=== PATIENT | male | born 1970 | race Caucasian/White ===

== ENCOUNTER 2017-02-03 21:02 | Emergency (ER) | payer OTHER ==
[~2017-02-03] VITALS: Ht 177.8 cm; Wt 88.5 kg
[2017-02-03 21:05] VITALS: BP 137/86; PULSE 96; RESP 18; TEMP 98.4; O2SAT 99
--- NOTE | 2017-02-03 21:05 | NUR ---
Patient to [facility] for evaluation. Side rails up. Report given to ANNALEE.
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
--- NOTE | 2017-02-03 21:15 | NUR ---
ER at bedside examining patient.
--- NOTE | 2017-02-03 21:35 | NUR ---
Written and verbal consent obtained from patient for blood alcohol, name and verified by patient. Disinfected patient's skin with Iodine that did not contain alcohol or other volatile organic compound. Collected the blood from the subject named by venipuncture, in the presence of Officer Kota. Used a sterile, dry hypodermic needle and dry vacuum blood collection. The dry vacuum blood collection was supplied by the officer named above. Withdrew a specimen of blood from right arm of the subject named above. Inverted the blood tube several times to ensure that the preservative and anticoagulant were thoroughly mixed in the blood specimen. I initialed the blood tube label for identification. The labeled blood tube was handed directly to the Officer named above. The blood tube stopper remained in place while I had possession of the blood tube. The Officer placed tube into envelope and sealed it in my presence. Envelope initialed by myself and Officer named above. Patient tolerated well, bandage applied, and bleeding controlled.
[2017-02-03 21:40] VITALS: BP 137/86; PULSE 96; RESP 18; TEMP 98.4; O2SAT 99
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
== END 2017-02-03 21:40 ==
LOC: SED 21:02
DX: Z02.83 Encounter for blood-alcohol and blood-drug test (principal); R03.0 Elevated blood-pressure reading, without diagnosis of hypertension; V89.2XXA Person injured in unspecified motor-vehicle accident, traffic, initial encounter; W22.10XA Striking against or struck by unspecified automobile airbag, initial encounter; Y93.89 Activity, other specified; Y99.8 Other external cause status; Y92.89 Other specified places as the place of occurrence of the external cause
CPT/HCPCS: 99283